=== PATIENT | female | born 1965 | race Caucasian/White ===

== ENCOUNTER 2025-02-16 15:12 | Emergency (ER) | payer OTHER ==
[2025-02-16 15:21] VITALS: BP 171/70; PULSE 64; RESP 18; TEMP 99.5; BMI 26.3
[2025-02-16] MEDS ORDERED: ACETAMINOPHEN 500 MG TABLET (FP) ONE (16:02)
[2025-02-16] MEDS ORDERED: IBUPROFEN 400 MG TABLET (FP) PO ONE (16:02)
[2025-02-16] MEDS ORDERED: LIDOCAINE 4% PATCH TP ONE (16:02)
[2025-02-16] MEDS: LIDOCAINE 4% PATCH TP ONE (16:16)
[2025-02-16] MEDS: IBUPROFEN 400 MG TABLET (FP) PO ONE (16:16)
[2025-02-16] MEDS: ACETAMINOPHEN 500 MG TABLET (FP) PO ONE (16:16)
== END 2025-02-16 17:36 | disposition home or self-care (01) ==
LOC: JER 15:12
DX: R07.2 Precordial pain (principal); I10 Essential (primary) hypertension; M54.6 Pain in thoracic spine; V49.50XA Passenger injured in collision with unspecified motor vehicles in traffic accident, initial encounter; Y92.410 Unspecified street and highway as the place of occurrence of the external cause
CPT/HCPCS: 71046-TC-FY; 93005; 93010; 99284-25